=== PATIENT | male | born 1960 | race Caucasian/White ===

== ENCOUNTER 2023-09-24 14:45 | Outpatient (AMB) | payer MEDICAID, SELFPAY ==
--- NOTE | 2023-09-24 14:50 | HO.NEPHOV ---
HPI HPI Comments History of Present Illness Details Middle aged man with long standing HTN and DM with CKD Continues to smoke 1PPD PFSH Social History Alcohol intake: former Patient Tobacco Use Status: Former Tobacco user Tobacco use type: Cigarette Substance Use Type: Marijuana Vital Signs 09/24/23 14:51 Height 6 ft 2 in Weight 201 lb 8 oz BMI 25.9 BP 126/84 Blood Pressure Location Rt brachial Position Sitting Pulse 83 Pulse Source Pulse Oximeter Pulse Oximetry (%) 97 Oxygen Delivery Method Room Air Physical Exam Vital Signs: Last Vital Signs Pulse 83 09/24/23 14:51 BP 126/84 09/24/23 14:51 Pulse Ox 97 09/24/23 14:51 Oxygen Delivery Method Room Air 09/24/23 14:51 BMI result Body Mass Index 25.9 Const General: comfortable Nutritional Appearance: well nourished Orientation/consciousness: patient oriented x3 HEENT Head: No normal to inspection Mouth: moist mucous membranes Neck Neck: Yes supple and Yes no JVD Resp Auscultation: clear to auscultation bilaterally, no rales and rub present Cardio Jugular venous distension: no JVD Palpation: no palpable S3 and no palpable S4 Heart sounds: no rubs GI Palpation (GI): Soft to palpation and nontender Percussion: No Fluid wave present General: Yes no CVA tenderness Back/Spine/Pelvis Back: no CVA tenderness Skin General skin exam: no rashes or lesions noted Neuro General: patient oriented x3 Extrem General: Yes no pedal edema and No clubbing Assessment & Plan Assessment & Plan (1) HTN (hypertension): Code(s): I10 - Essential (primary) hypertension (2) Diabetes mellitus: Code(s): E11.9 - Type 2 diabetes mellitus without complications (3) CKD (chronic kidney disease) stage 3, GFR 30-59 ml/min: Code(s): N18.30 - Chronic kidney disease, stage 3 unspecified Plan 63-year-old man with a history of CKD in a setting of hypertension diabetes mellitus. Labs are not available at this time. Goal is to slow the portion disease. Continue to avoid nephrotoxic agents. Optimize blood sugar and maintain A1c less than 7%. Optimize blood pressure and maintain blood pressure less than 130/80. Basic workup ordered. All his questions were answered Orders: Orders Comprehensive Met. Panel 3 Months N18.30 - Chronic kidney disease, stage 3 unspecified Total Protein Urine Random 3 Months N18.30 - Chronic kidney disease, stage 3 unspecified Creatinine Urine 3 Months N18.30 - Chronic kidney disease, stage 3 unspecified Parathyroid Hormone Intact 3 Months N18.30 - Chronic kidney disease, stage 3 unspecified UA and rflx microscopic 3 Months N18.30 - Chronic kidney disease, stage 3 unspecified Coding Level of Care Code Est Pt Level 4 (49226) Diagnoses HTN (hypertension) I10 Diabetes mellitus E11.9 CKD (chronic kidney disease) stage 3, GFR 30-59 ml/min N18.30 Results Reviewed Nephrology Results: No Data to Display
[2023-09-24 14:51] VITALS: BP 126/84; PULSE 83; O2SAT 97; BMI 25.9
== END 2023-09-24 15:10 | disposition home or self-care (01) ==
PROVIDERS: Visit Provider Internal Medicine Hypertension Specialist
DX: I10 Essential (primary) hypertension (principal); E11.9 Type 2 diabetes mellitus without complications; N18.30 Chronic kidney disease, stage 3 unspecified
CPT/HCPCS: 99214

== ENCOUNTER → 2023-09-24 14:45 | Outpatient (BNVA) | payer MEDICAID, SELFPAY | PROVIDERS: Visit Provider Internal Medicine Hypertension Specialist | DX: I12.9 Hypertensive chronic kidney disease with stage 1 through stage 4 chronic kidney disease, or unspecified chronic kidney disease (principal); E11.22 Type 2 diabetes mellitus with diabetic chronic kidney disease; N18.30 Chronic kidney disease, stage 3 unspecified | CPT/HCPCS: 99212 ==

== ENCOUNTER 2024-01-28 14:17 | Outpatient (AMB) | payer MEDICAID, SELFPAY ==
[2024-01-28 14:20] VITALS: BP 110/80; PULSE 79; O2SAT 95; BMI 25.3
--- NOTE | 2024-01-28 14:20 | HO.NEPHOV ---
Vital Signs 01/28/24 14:20 Height 6 ft 2 in Weight 197 lb BMI 25.3 BP 110/80 Blood Pressure Location Rt brachial Position Sitting Pulse 79 Pulse Source Pulse Oximeter Pulse Oximetry (%) 95 Oxygen Delivery Method Room Air Intake Visit Reasons: CKD 4MO follow up/ # not on service Occupational Therapy Assist Required: No Accompanied by: Self / Same As Patient Allergies codeine Allergy (Verified 01/28/24 14:22) Gastrointestinal Upset Medication List - Last Reconciled 01/29/24 by Keith Bernardo MD aspirin 81 mg PO DAILY atorvastatin 20 mg PO DAILY carvedilol 25 mg PO BID dulaglutide (Trulicity) mg subcut QWEEK famotidine 40 mg PO BID glipizide ER 5 mg PO DAILY hydrochlorothiazide 25 mg PO DAILY hydroxyzine HCl 25 mg PO DAILY insulin glargine (Lantus Solostar U-100 Insulin) units subcut risperidone 1 mg PO BEDTIME tamsulosin 0.4 mg PO DAILY HPI Comments Details: Middle aged man with long standing HTN and DM with CKD He has quit smoking but continues to vape PENDING SALE TO [facility] Social History Alcohol intake: former Patient Tobacco Use Status: Former Tobacco user Tobacco use type: Cigarette Substance Use Type: Marijuana Physical Exam Vital Signs: Last Vital Signs Pulse 79 01/28/24 14:20 BP 110/80 01/28/24 14:20 Pulse Ox 95 01/28/24 14:20 Oxygen Delivery Method Room Air 01/28/24 14:20 BMI result Body Mass Index 25.3 Const General: comfortable Nutritional Appearance: well nourished Orientation/consciousness: patient oriented x3 HEENT Head: No normal to inspection Mouth: moist mucous membranes Neck Neck: Yes supple and Yes no JVD Resp Auscultation: clear to auscultation bilaterally, no rales and rub present Cardio Jugular venous distension: no JVD Palpation: no palpable S3 and no palpable S4 Heart sounds: no rubs GI Palpation (GI): Soft to palpation and nontender Percussion: No Fluid wave present General: Yes no CVA tenderness Back/Spine/Pelvis Back: no CVA tenderness Skin General skin exam: no rashes or lesions noted Neuro General: patient oriented x3 Extrem General: Yes no pedal edema and No clubbing Results Reviewed Results Reviewed: Labs from December 2023 was reviewed. BUN 26 Creatinine 2.0. GFR 37.3. Serum electrolytes normal. A1c 8.3. Over the past 4 months creatinine has been fluctuating between 2.0 and 2.4 mg/dL. Nephrology Results: No Data to Display Assessment & Plan Assessment & Plan (1) HTN (hypertension): Code(s): I10 - Essential (primary) hypertension Category: Medical (2) Diabetes mellitus: Code(s): E11.9 - Type 2 diabetes mellitus without complications Category: Medical (3) CKD (chronic kidney disease) stage 3, GFR 30-59 ml/min: Code(s): N18.30 - Chronic kidney disease, stage 3 unspecified Category: Medical Plan 63-year-old man with a history of CKD in a setting of hypertension diabetes mellitus. 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 Goal is to slow the progression of kidney disease. Continue to avoid nephrotoxic agents. Optimize blood sugar and maintain A1c less than 7%. Suggest adding SGLT 2 inhibitors. Optimize blood pressure and maintain blood pressure less than 130/80. Urine protein creatinine ratio ordered. He will benefit from RAAS inhibition. Coding Level of Care Code Est Pt Level 4 (72967) Diagnoses HTN (hypertension) I10 Diabetes mellitus E11.9 CKD (chronic kidney disease) stage 3, GFR 30-59 ml/min N18.30
== END 2024-01-28 14:59 | disposition home or self-care (01) ==
PROVIDERS: Visit Provider Internal Medicine Hypertension Specialist
DX: I10 Essential (primary) hypertension (principal); E11.9 Type 2 diabetes mellitus without complications; N18.30 Chronic kidney disease, stage 3 unspecified
CPT/HCPCS: 99214

== ENCOUNTER → 2024-01-28 14:17 | Outpatient (BNVA) | payer MEDICAID, SELFPAY | PROVIDERS: Visit Provider Internal Medicine Hypertension Specialist | DX: E11.22 Type 2 diabetes mellitus with diabetic chronic kidney disease (principal); I12.9 Hypertensive chronic kidney disease with stage 1 through stage 4 chronic kidney disease, or unspecified chronic kidney disease; N18.30 Chronic kidney disease, stage 3 unspecified | CPT/HCPCS: 99212 ==

== ENCOUNTER 2024-05-25 13:51 | Outpatient (AMB) | payer MEDICAID, SELFPAY ==
[2024-05-25 13:55] VITALS: BP 118/82; PULSE 75; O2SAT 96; BMI 25.3
--- NOTE | 2024-05-25 13:55 | HO.NEPHOV_ITS ---
Vital Signs 05/25/24 13:55 Height 6 ft 2 in Weight 197 lb BMI 25.3 BP 118/82 Blood Pressure Location Rt brachial Position Sitting Pulse 75 Pulse Source Pulse Oximeter Pulse Oximetry (%) 96 Oxygen Delivery Method Room Air Intake Visit Reasons: 4 mon follow up/ # not in service Bilingual Case Manager Required: No Accompanied by: Self / Same As Patient Allergies codeine Allergy (Verified 05/25/24 13:56) Gastrointestinal Upset Medication List - Last Reconciled 05/25/24 by Keith Bernardo MD aspirin 81 mg PO DAILY atorvastatin 20 mg PO DAILY carvedilol 25 mg PO BID dulaglutide (Trulicity) mg subcut QWEEK famotidine 40 mg PO BID glipizide ER 5 mg PO DAILY hydrochlorothiazide 25 mg PO DAILY hydroxyzine HCl 25 mg PO DAILY insulin glargine (Lantus Solostar U-100 Insulin) units subcut risperidone 1 mg PO BEDTIME tamsulosin 0.4 mg PO DAILY HPI Comments Details: Middle aged man with long standing HTN and DM with CKD He has quit smoking but continues to vape 05/25/24 Has been taking Motrin Also on HCTZ 25 mg c/o Pain in legs when he walks- relieved with rest PFSH Social History Alcohol intake: former Patient Tobacco Use Status: Former Tobacco user Tobacco use type: Cigarette Substance Use Type: Marijuana Physical Exam Vital Signs: Last Vital Signs Pulse 75 05/25/24 13:55 BP 118/82 05/25/24 13:55 Pulse Ox 96 05/25/24 13:55 Oxygen Delivery Method Room Air 05/25/24 13:55 BMI result Body Mass Index 25.3 Const General: comfortable; No acute distress Orientation/consciousness: patient oriented x3 Eyes General: appearance normal, both eyes and all related structures Visual Bhardwaj: normal visual bhardwaj by confrontation Neck Neck: Yes supple and Yes no JVD Resp Effort & Inspection: normal respiratory effort and respiratory effort not decreased Auscultation: rhonchi Cardio Palpation: no palpable S3 and no palpable S4 Heart sounds: no rubs GI Inspection: Yes normal to inspection Palpation (GI): Soft to palpation Percussion: Yes normal to percussion Auscultation: normal bowel sounds General: Yes no CVA tenderness Back/Spine/Pelvis Back: no CVA tenderness Skin General skin exam: no petechiae and no purpura Neuro General: patient oriented x3 and no focal motor deficits Extrem General: No clubbing and No edema Results Reviewed Nephrology Results: Renal US 05/29/24 Assessment & Plan Assessment & Plan (1) HTN (hypertension): Code(s): I10 - Essential (primary) hypertension Category: Medical (2) Diabetes mellitus: Code(s): E11.9 - Type 2 diabetes mellitus without complications Category: Medical (3) CKD (chronic kidney disease) stage 3, GFR 30-59 ml/min: Code(s): N18.30 - Chronic kidney disease, stage 3 unspecified Category: Medical Plan 63-year-old man with a history of CKD in a setting of hypertension diabetes mellitus. 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 Goal is to slow the progression of kidney disease. Continue to avoid nephrotoxic agents. Optimize blood sugar and maintain A1c less than 7%. Suggest adding SGLT 2 inhibitors. Optimize blood pressure and maintain blood pressure less than 130/80. Urine protein creatinine ratio ordered. He will benefit from RAAS inhibition. Superimposed JANICE due tp hypoperfusion from NSAIDS + HCTZ Still need to r/o obstruction Plan:DC HTCZ DC Motrin REcheck Renal panel in 3 weeks Orders: Orders US renal BI 05/29/24 N18.30 - Chronic kidney disease, stage 3 unspecified Basic Metabolic Panel 3 Weeks N18.30 - Chronic kidney disease, stage 3 unspecified Coding Level of Care Code Est Pt Level 4 (16611) Diagnoses HTN (hypertension) I10 Diabetes mellitus E11.9 CKD (chronic kidney disease) stage 3, GFR 30-59 ml/min N18.30
== END 2024-05-25 14:10 | disposition home or self-care (01) ==
PROVIDERS: Visit Provider Internal Medicine Hypertension Specialist
DX: I12.9 Hypertensive chronic kidney disease with stage 1 through stage 4 chronic kidney disease, or unspecified chronic kidney disease (principal); E11.22 Type 2 diabetes mellitus with diabetic chronic kidney disease; N18.32 Chronic kidney disease, stage 3b
CPT/HCPCS: 99214

== ENCOUNTER → 2024-05-25 13:51 | Outpatient (BNVA) | payer MEDICAID, SELFPAY | PROVIDERS: Visit Provider Internal Medicine Hypertension Specialist | DX: E11.22 Type 2 diabetes mellitus with diabetic chronic kidney disease (principal); I12.9 Hypertensive chronic kidney disease with stage 1 through stage 4 chronic kidney disease, or unspecified chronic kidney disease; N18.30 Chronic kidney disease, stage 3 unspecified | CPT/HCPCS: 99212 ==

== ENCOUNTER 2024-05-29 10:22 | Outpatient (REF) | payer MEDICAID, SELFPAY ==
--- NOTE | ~2024-05-29 | US_ITS ---
EXAMINATION: US RETROPERITONEAL LIMITED (RENAL ONLY) CLINICAL INFORMATION: Chronic kidney disease, stage 3 unspecified. COMPARISON: None available. TECHNIQUE: Real-time imaging of the kidneys. FINDINGS: RIGHT KIDNEY: 9.6 x 5.3 x 5.4 cm (SAG x AP x TRV). The kidney is normal in size, contour, and echogenicity. Renal cortical thickness is normal. No calculi or focal parenchymal lesions. No hydronephrosis. LEFT KIDNEY: 12.1 x 5.7 x 4.8 cm (SAG x AP x TRV). The kidney is normal in size, contour, and echogenicity. Renal cortical thickness is normal. No calculi or focal parenchymal lesions. No hydronephrosis. US/US renal BI IMPRESSION: Normal bilateral kidney ultrasound. Electronically signed by: Santos Lazo MD 07/10/2024 08:38 AM [facility] [place]
== END 2024-05-29 10:23 | disposition home or self-care (01) ==
LOC: HO.US 10:22
PROVIDERS: Visit Provider Internal Medicine Hypertension Specialist
DX: N18.30 Chronic kidney disease, stage 3 unspecified (principal)
CPT/HCPCS: 76775

== ENCOUNTER → 2024-05-29 10:25 | Outpatient (BNV) | payer MEDICAID, SELFPAY | PROVIDERS: Visit Provider Radiology Diagnostic Radiology | DX: N18.30 Chronic kidney disease, stage 3 unspecified (principal) | CPT/HCPCS: 76775 ==

== ENCOUNTER 2024-07-14 14:30 | Outpatient (AMB) | payer MEDICAID, SELFPAY ==
--- NOTE | 2024-07-14 14:33 | HO.NEPHOV_ITS ---
Vital Signs 07/14/24 14:34 Height 6 ft 2 in Weight 201 lb BMI 25.8 BP 114/82 Blood Pressure Location Rt brachial Position Sitting Pulse 66 Pulse Source Pulse Oximeter Pulse Oximetry (%) 97 Oxygen Delivery Method Room Air Intake Visit Reasons: CKD/ Conf Consulting Practice Director Required: No Accompanied by: Refuge Manager Allergies codeine Allergy (Verified 07/14/24 14:35) Gastrointestinal Upset Medication List - Last Reconciled 07/14/24 by Keith Bernardo MD aspirin 81 mg PO DAILY atorvastatin 20 mg PO DAILY carvedilol 25 mg PO BID dulaglutide (Trulicity) mg subcut famotidine 40 mg PO BID glipizide ER 5 mg PO DAILY hydroxyzine HCl 25 mg PO DAILY insulin glargine (Lantus Solostar U-100 Insulin) units subcut risperidone 1 mg PO BEDTIME tamsulosin 0.4 mg PO DAILY HPI Comments Details: Middle aged man with long standing HTN and DM with CKD and long stnading h/o smoking. h/o PVD He has quit smoking but continues to vape 05/25/24 Has been taking Motrin Also on HCTZ 25 mg c/o Pain in legs when he walks- relieved with rest 07/14/24 Events noted Seen by vascular surgery- has Carotid stenosis Has stopped vaping 3 weeks ago PFSH Social History Alcohol intake: former Patient Tobacco Use Status: Former Tobacco user Tobacco use type: Cigarette Substance Use Type: Marijuana Physical Exam Vital Signs: Last Vital Signs Pulse 66 07/14/24 14:34 BP 114/82 07/14/24 14:34 Pulse Ox 97 07/14/24 14:34 Oxygen Delivery Method Room Air 07/14/24 14:34 BMI result Body Mass Index 25.8 Const General: comfortable; No acute distress Orientation/consciousness: patient oriented x3 Eyes General: appearance normal, both eyes and all related structures Visual Bhardwaj: normal visual bhardwaj by confrontation Neck Neck: Yes supple and Yes no JVD Resp Effort & Inspection: normal respiratory effort and respiratory effort not decreased Auscultation: rhonchi Cardio Palpation: no palpable S3 and no palpable S4 Heart sounds: no rubs GI Inspection: Yes normal to inspection Palpation (GI): Soft to palpation Percussion: Yes normal to percussion Auscultation: normal bowel sounds General: Yes no CVA tenderness Back/Spine/Pelvis Back: no CVA tenderness Skin General skin exam: no petechiae and no purpura Neuro General: patient oriented x3 and no focal motor deficits Extrem General: No clubbing and No edema Results Reviewed Results Reviewed: May 2024 Renal USG RIGHT KIDNEY: 9.6 x 5.3 x 5.4 cm (SAG x AP x TRV). The kidney is normal in size, contour, and echogenicity. Renal cortical thickness is normal. No calculi or focal parenchymal lesions. No hydronephrosis. LEFT KIDNEY: 12.1 x 5.7 x 4.8 cm (SAG x AP x TRV). The kidney is normal in size, contour, and echogenicity. Renal cortical thickness is normal. No calculi or focal parenchymal lesions. No hydronephrosis. US/US renal BI IMPRESSION: Normal bilateral kidney ultrasound. Nephrology Results: Renal US 05/29/24 Assessment & Plan Assessment & Plan (1) HTN (hypertension): Code(s): I10 - Essential (primary) hypertension Category: Medical (2) Diabetes mellitus: Code(s): E11.9 - Type 2 diabetes mellitus without complications Category: Medical (3) CKD (chronic kidney disease) stage 3, GFR 30-59 ml/min: Code(s): N18.30 - Chronic kidney disease, stage 3 unspecified Category: Medical Plan 63-year-old man with a history of CKD in a setting of hypertension diabetes mellitus. 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 BP is well controleld Goal is to slow the progression of kidney disease. Continue to avoid nephrotoxic agents. Optimize blood sugar and maintain A1c less than 7%. Suggest adding SGLT 2 inhibitors. Optimize blood pressure and maintain blood pressure less than 130/80. Urine protein creatinine ratio ordered but not done. Reordered He will benefit from RAAS inhibition/SGLT-2 inhibition No evidence of obstruction based on ultrasound Right kidney is relatively smaller than left. Cannot rule out underlying KANDY given the history of smoking . However, BP is well controlled At risk for contrast nephropathy. Would recommend hydration prior to CTA Orders: Orders Total Protein Urine Random Today N18.30 - Chronic kidney disease, stage 3 unspecified UA and rflx microscopic Today N18.30 - Chronic kidney disease, stage 3 unspecified Creatinine Today N18.30 - Chronic kidney disease, stage 3 unspecified Basic Metabolic Panel Today N18.30 - Chronic kidney disease, stage 3 unspecified Coding Level of Care Code Est Pt Level 4 (95043) Diagnoses HTN (hypertension) I10 Diabetes mellitus E11.9 CKD (chronic kidney disease) stage 3, GFR 30-59 ml/min N18.30
[2024-07-14 14:34] VITALS: BP 114/82; PULSE 66; O2SAT 97; BMI 25.8
== END 2024-07-14 14:52 | disposition home or self-care (01) ==
PROVIDERS: Visit Provider Internal Medicine Hypertension Specialist
DX: I12.9 Hypertensive chronic kidney disease with stage 1 through stage 4 chronic kidney disease, or unspecified chronic kidney disease (principal); E11.22 Type 2 diabetes mellitus with diabetic chronic kidney disease; N18.30 Chronic kidney disease, stage 3 unspecified
CPT/HCPCS: 99214

== ENCOUNTER → 2024-07-14 14:30 | Outpatient (BNVA) | payer MEDICAID, SELFPAY | PROVIDERS: Visit Provider Internal Medicine Hypertension Specialist | DX: I12.9 Hypertensive chronic kidney disease with stage 1 through stage 4 chronic kidney disease, or unspecified chronic kidney disease (principal); E11.22 Type 2 diabetes mellitus with diabetic chronic kidney disease; E11.51 Type 2 diabetes mellitus with diabetic peripheral angiopathy without gangrene; N18.30 Chronic kidney disease, stage 3 unspecified; Z87.891 Personal history of nicotine dependence | CPT/HCPCS: 99212 ==

== ENCOUNTER 2024-10-06 10:00 | Outpatient (AMB) | payer MEDICAID, SELFPAY ==
[2024-10-06 10:04] VITALS: BP 120/98; PULSE 82; O2SAT 97; BMI 25.2
--- NOTE | 2024-10-06 10:04 | HO.NEPHOV ---
Vital Signs 10/06/24 10:04 10/06/24 10:17 Height 6 ft 2 in Weight 196 lb BMI 25.2 BP 120/98 H 120/70 Blood Pressure Location Rt brachial Rt brachial Position Sitting Sitting Pulse 82 Pulse Source Pulse Oximeter Pulse Oximetry (%) 97 Oxygen Delivery Method Room Air Intake Visit Reasons: CKD/ Conf Paper Gluing Operator Required: No Accompanied by: Self / Same As Patient Allergies codeine Allergy (Verified 10/06/24 10:06) Gastrointestinal Upset Medication List - Last Reconciled 10/06/24 by Keith Bernardo MD aspirin 81 mg PO DAILY atorvastatin 20 mg PO DAILY carvedilol 25 mg PO BID clopidogrel 75 mg PO DAILY dulaglutide (Trulicity) mg subcut famotidine 40 mg PO BID glipizide ER 5 mg PO DAILY hydroxyzine HCl 25 mg PO DAILY insulin glargine (Lantus Solostar U-100 Insulin) units subcut risperidone 1 mg PO BEDTIME tamsulosin 0.4 mg PO DAILY HPI Comments Details: Middle aged man with long standing HTN and DM with CKD and long stnading h/o smoking. h/o PVD He has quit smoking but continues to vape 05/25/24 Has been taking Motrin Also on HCTZ 25 mg c/o Pain in legs when he walks- relieved with rest 07/14/24 Events noted Seen by vascular surgery- has Carotid stenosis Has stopped vaping 3 weeks ago 10/06/24- Underwent L CEA Doing well Still smoking PFSH Social History Alcohol intake: former Patient Tobacco Use Status: Former Tobacco user Tobacco use type: Cigarette Substance Use Type: Marijuana Physical Exam Vital Signs: Last Vital Signs Pulse 82 10/06/24 10:04 BP 120/98 H 10/06/24 10:04 Pulse Ox 97 10/06/24 10:04 Oxygen Delivery Method Room Air 10/06/24 10:04 BMI result Body Mass Index 25.2 Comfortable Neck supple no JVD. Lungs entry equal no rales. Heart S1-S2 heard no gallop or rub. Abdomen soft nontender. Neuro alert awake oriented. No asterixis. Left UE weakness Extremities no edema. Results Reviewed Results Reviewed: May 2024 Renal USG RIGHT KIDNEY: 9.6 x 5.3 x 5.4 cm (SAG x AP x TRV). The kidney is normal in size, contour, and echogenicity. Renal cortical thickness is normal. No calculi or focal parenchymal lesions. No hydronephrosis. LEFT KIDNEY: 12.1 x 5.7 x 4.8 cm (SAG x AP x TRV). The kidney is normal in size, contour, and echogenicity. Renal cortical thickness is normal. No calculi or focal parenchymal lesions. No hydronephrosis. US/US renal BI IMPRESSION: Normal bilateral kidney ultrasound. Nephrology Results: Renal US 05/29/24 Assessment & Plan Assessment & Plan (1) HTN (hypertension): Code(s): I10 - Essential (primary) hypertension Category: Medical (2) Diabetes mellitus: Code(s): E11.9 - Type 2 diabetes mellitus without complications Category: Medical (3) CKD (chronic kidney disease) stage 3, GFR 30-59 ml/min: Code(s): N18.30 - Chronic kidney disease, stage 3 unspecified Category: Medical Plan 63-year-old man with a history of CKD in a setting of hypertension diabetes mellitus. 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 BP is well controleld Goal is to slow the progression of kidney disease. Continue to avoid nephrotoxic agents. Optimize blood sugar and maintain A1c less than 7%. Suggest adding SGLT 2 inhibitors. Optimize blood pressure and maintain blood pressure less than 130/80. Urine protein creatinine ratio ordered but not done. Reordered He will benefit from RAAS inhibition/SGLT-2 inhibition No evidence of obstruction based on ultrasound Right kidney is relatively smaller than left. Cannot rule out underlying KANDY given the history of smoking . However, BP is well controlled At risk for contrast nephropathy. Would recommend hydration prior to CTA Orders: Orders Comprehensive Met. Panel Today N18.30 - Chronic kidney disease, stage 3 unspecified Complete Blood Count Auto Diff Today N18.30 - Chronic kidney disease, stage 3 unspecified Coding Level of Care Code Est Pt Level 4 (71687) Diagnoses HTN (hypertension) I10 Diabetes mellitus E11.9 CKD (chronic kidney disease) stage 3, GFR 30-59 ml/min N18.30
[2024-10-06 10:17] VITALS: BP 120/70
== END 2024-10-06 10:20 | disposition home or self-care (01) ==
PROVIDERS: Visit Provider Internal Medicine Hypertension Specialist
DX: I10 Essential (primary) hypertension (principal); E11.9 Type 2 diabetes mellitus without complications; N18.30 Chronic kidney disease, stage 3 unspecified
CPT/HCPCS: 99214

== ENCOUNTER → 2024-10-06 10:00 | Outpatient (BNVA) | payer MEDICAID, SELFPAY | PROVIDERS: Visit Provider Internal Medicine Hypertension Specialist | DX: E11.22 Type 2 diabetes mellitus with diabetic chronic kidney disease (principal); I12.9 Hypertensive chronic kidney disease with stage 1 through stage 4 chronic kidney disease, or unspecified chronic kidney disease; N18.30 Chronic kidney disease, stage 3 unspecified | CPT/HCPCS: 99212 ==

== ENCOUNTER 2024-10-06 10:35 | Outpatient (REF) | payer MEDICAID, SELFPAY ==
[2024-10-06 11:54] LABS: MANUAL DIFF FLAG NO
[2024-10-06 12:04] LABS: Basophils Absolute Auto 0.1 X10*3/uL (0.0-0.2); Basophils Percent Auto 0.6 % (0-2); Eosinophils Absolute Auto 0.2 X10*3/uL (0.0-0.4); Eosinophils Percent Auto 1.4 % (0-4); Hematocrit 45.5 % (42.0-52.0); Imm Gran Abs Auto 0.06 X10*3/uL (0.00-0.03); Imm Gran Pct Auto 0.5 % (0.0-0.4); Lymphocytes Absolute Auto 1.8 X10*3/uL (1.2-4.9); Lymphocytes Percent Auto 14.4 % (20-40); Mean Corpuscular Hemoglobin 29.5 pg (27.0-33.0); Mean Corpuscular Volume 89.4 fL (80.0-98.0); Mean Platelet Volume 10.1 fL (9.4-12.4); Monocytes Absolute Auto 0.8 X10*3/uL (0.1-1.2); Monocytes Percent Auto 6.4 % (2-11); Neutrophils Absolute Auto 9.5 x10*3/uL (2.0-8.3); Neutrophils Percent Auto 76.7 % (45-73); Platelet Count 258 X10*3/uL (160-400); Red Blood Count 5.09 X10*6/uL (4.60-5.80); Red Cell Distribution Width 14.2 % (11.0-16.0); White Blood Count 12.3 X10*3/uL (4.8-10.8)
[2024-10-06 12:32] LABS: Alanine Aminotransferase 23 U/L (0-40); Alkaline Phosphatase 107 U/L (39-117); Anion Gap 16 (12-20); Aspartate Amino Transferase 23 U/L (5-37); Bilirubin Total 0.3 mg/dL (0.0-1.0); Blood Urea Nitrogen 25 mg/dL (9-16); Calcium 9.7 mg/dL (8.4-10.2); Carbon Dioxide 24 mmol/L (22-29); Chloride 105 mmol/L (96-108); Estimated Glomerular Filt Rate 34; Glucose Random 161 mg/dL (60-115); Potassium 4.6 mmol/L (3.3-5.1); Sodium 140 mmol/L (135-145); Total Protein 7.4 g/dL (6.5-8.0)
== END 2024-10-06 10:36 | disposition home or self-care (01) ==
LOC: HO.10HDL 10:35
PROVIDERS: Visit Provider Internal Medicine Hypertension Specialist
DX: N18.30 Chronic kidney disease, stage 3 unspecified (principal)
CPT/HCPCS: 36415; 80053; 85025

== ENCOUNTER 2025-02-04 11:06 | Outpatient (AMB) | payer MEDICAID, SELFPAY ==
[2025-02-04 11:19] VITALS: BP 134/88; PULSE 71; O2SAT 96; BMI 27.2
--- NOTE | 2025-02-04 11:19 | HO.NEPHOV_ITS ---
Vital Signs 02/04/25 11:19 Height 6 ft 2 in Weight 212 lb BMI 27.2 BP 134/88 Blood Pressure Location Rt brachial Position Sitting Pulse 71 Pulse Source Pulse Oximeter Pulse Oximetry (%) 96 Oxygen Delivery Method Room Air Intake Visit Reasons: CKD/ Conf Vice [employer] Required: No Accompanied by: Friend Allergies codeine Allergy (Verified 02/04/25 11:22) Gastrointestinal Upset Medication List - Last Reconciled 02/04/25 by Keith Bernardo MD aspirin 81 mg PO DAILY atorvastatin 20 mg PO DAILY carvedilol 25 mg PO BID clopidogrel 75 mg PO DAILY dulaglutide (Trulicity) mg subcut famotidine 40 mg PO BID glipizide ER 5 mg PO DAILY hydroxyzine HCl 25 mg PO DAILY insulin glargine (Lantus Solostar U-100 Insulin) units subcut risperidone 1 mg PO BEDTIME tamsulosin 0.4 mg PO DAILY HPI Comments Details: Middle aged man with long standing HTN and DM with CKD and long stnading h/o smoking. h/o PVD He has quit smoking but continues to vape 05/25/24 ;Has been taking Motrin ;Also on HCTZ 25 mg ;c/o Pain in legs when he walks- relieved with rest 07/14/24 ;Events noted ;Seen by vascular surgery- has Carotid stenosis; Has stopped vaping 3 weeks ago 10/06/24- Underwent L CEA ;Doing well ;Still smoking 02/04/25 64-year-old male presenting for follow-up regarding chronic kidney disease and hypertension management. He has chronic kidney disease alongside essential hypertension, with blood pressure maintained at a goal of 134/88 mmHg on current antihypertensive therapy. The patient also has type 2 diabetes mellitus, managed with a regimen including Trulicity, glipizide, and Lantus. His last blood glucose reading was 170 mg/dL with an HbA1c of approximately 7.5%. The patient's vascular history includes peripheral vascular disease and a history of carotid artery surgery performed in October. An ultrasound of the carotid arteries has been suggested but not scheduled. The patient reports attempts to reduce smoking and follow dietary recommendations related to salt intake given the impact on blood pressure and renal function. No significant changes or new symptoms were described during the visit. [facility] Social History Alcohol intake: former Patient Tobacco Use Status: Former Tobacco user Tobacco use type: Cigarette Substance Use Type: Marijuana Physical Exam Vital Signs: Last Vital Signs Pulse 71 02/04/25 11:19 BP 134/88 02/04/25 11:19 Pulse Ox 96 02/04/25 11:19 Oxygen Delivery Method Room Air 02/04/25 11:19 BMI result Body Mass Index 27.2 Comfortable Neck supple no JVD. Lungs entry equal no rales. Heart S1-S2 heard no gallop or rub. Abdomen soft nontender. Neuro alert awake oriented. No asterixis. Left UE weakness Extremities no edema. Results Reviewed Results Reviewed: Cr 2.1 Nephrology Results: Hgb 15.0 g/dl (14.0-18.0) 10/06/24 WBC 12.3 X10*3/uL (4.8-10.8) H 10/06/24 Plt Count 258 X10*3/uL (160-400) 10/06/24 Sodium 140 mmol/L (135-145) 10/06/24 Potassium 4.6 mmol/L (3.3-5.1) 10/06/24 Chloride 105 mmol/L (96-108) 10/06/24 Carbon Dioxide 24 mmol/L (22-29) 10/06/24 BUN 25 mg/dL (9-16) H 10/06/24 Creatinine 2.01 mg/dL (0.5-1.4) H 10/06/24 Calcium 9.7 mg/dL (8.4-10.2) 10/06/24 Renal US 05/29/24 Assessment & Plan Assessment & Plan (1) HTN (hypertension): Code(s): I10 - Essential (primary) hypertension Category: Medical (2) Diabetes mellitus: Code(s): E11.9 - Type 2 diabetes mellitus without complications Category: Medical (3) CKD (chronic kidney disease) stage 3, GFR 30-59 ml/min: Code(s): N18.30 - Chronic kidney disease, stage 3 unspecified Category: Medical Plan 64-year-old man with a history of CKD in a setting of hypertension diabetes mellitus. 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 BP is well controleld Goal is to slow the progression of kidney disease. Continue to avoid nephrotoxic agents. Optimize blood sugar and maintain A1c less than 7%. Suggest adding SGLT 2 inhibitors. Optimize blood pressure and maintain blood pressure less than 130/80. Urine protein creatinine ratio ordered but not done. Reordered He will benefit from RAAS inhibition/SGLT-2 inhibition No evidence of obstruction based on ultrasound Right kidney is relatively smaller than left. Cannot rule out underlying KANDY given the history of smoking . However, BP is acceptable Will track down lab results from [facility] Orders: Orders Complete Blood Count Auto Diff 3 Months N18.30 - Chronic kidney disease, stage 3 unspecified Parathyroid Hormone Intact 3 Months N18.30 - Chronic kidney disease, stage 3 unspecified UA and rflx microscopic 3 Months N18.30 - Chronic kidney disease, stage 3 unspecified Total Protein Urine Random 3 Months N18.30 - Chronic kidney disease, stage 3 unspecified Basic Metabolic Panel 3 Months N18.30 - Chronic kidney disease, stage 3 unspecified Creatinine Urine 3 Months N18.30 - Chronic kidney disease, stage 3 unspecified Patient Instructions: - Continue taking current medications as prescribed. - Check blood pressure regularly and maintain it within the target range. - Monitor your blood glucose levels and inform of any significant changes. - Reduce salt intake in your diet. - Attempt to quit smoking to improve vascular and renal health. - Schedule and attend ultrasound for carotid artery evaluation. - If you experience any new symptoms, seek medical care promptly. - Follow up with any specialists as advised for hernia consultation. - Attend blood work and next scheduled appointment in May. Coding Level of Care Code Est Pt Level 4 (14319) Diagnoses HTN (hypertension) I10 Diabetes mellitus E11.9 CKD (chronic kidney disease) stage 3, GFR 30-59 ml/min N18.30
== END 2025-02-04 11:32 | disposition home or self-care (01) ==
LOC: HO.HKA 11:07
PROVIDERS: Visit Provider Internal Medicine Hypertension Specialist
DX: I10 Essential (primary) hypertension (principal); E11.9 Type 2 diabetes mellitus without complications; N18.30 Chronic kidney disease, stage 3 unspecified
CPT/HCPCS: 99214

== ENCOUNTER → 2025-02-04 11:06 | Outpatient (BNVA) | payer MEDICAID, SELFPAY | PROVIDERS: Visit Provider Internal Medicine Hypertension Specialist | DX: E11.22 Type 2 diabetes mellitus with diabetic chronic kidney disease (principal); I12.9 Hypertensive chronic kidney disease with stage 1 through stage 4 chronic kidney disease, or unspecified chronic kidney disease; N18.32 Chronic kidney disease, stage 3b | CPT/HCPCS: 99212 ==

== ENCOUNTER 2025-05-11 10:37 | Outpatient (AMB) | payer MEDICAID, SELFPAY ==
--- NOTE | 2025-05-11 10:39 | HO.NEPHOV ---
Vital Signs 05/11/25 10:40 Height 6 ft 2 in Weight 212 lb BMI 27.2 BP 140/82 H Blood Pressure Location Lt brachial Position Sitting Pulse 76 Pulse Source Pulse Oximeter Pulse Oximetry (%) 95 Oxygen Delivery Method Room Air Intake Visit Reasons: FU CONF Director Of Clinical Services Required: No Accompanied by: Self / Same As Patient Allergies codeine Allergy (Verified 05/11/25 10:41) Gastrointestinal Upset Medication List - Last Reconciled 05/11/25 by Keith Bernardo MD aspirin 81 mg PO DAILY atorvastatin 20 mg PO DAILY carvedilol 25 mg PO BID clopidogrel 75 mg PO DAILY dulaglutide (Trulicity) mg subcut famotidine 40 mg PO BID glipizide ER 5 mg PO DAILY hydroxyzine HCl 25 mg PO DAILY insulin glargine (Lantus Solostar U-100 Insulin) units subcut risperidone 1 mg PO BEDTIME tamsulosin 0.4 mg PO DAILY HPI Comments Details: Middle aged man with long standing HTN and DM with CKD and long stnading h/o smoking. h/o PVD He has quit smoking but continues to vape 05/25/24 ;Has been taking Motrin ;Also on HCTZ 25 mg ;c/o Pain in legs when he walks- relieved with rest 07/14/24 ;Events noted ;Seen by vascular surgery- has Carotid stenosis; Has stopped vaping 3 weeks ago 10/06/24- Underwent L CEA ;Doing well ;Still smoking 02/04/25 64-year-old male presenting for follow-up regarding chronic kidney disease and hypertension management. He has chronic kidney disease alongside essential hypertension, with blood pressure maintained at a goal of 134/88 mmHg on current antihypertensive therapy. The patient also has type 2 diabetes mellitus, managed with a regimen including Trulicity, glipizide, and Lantus. His last blood glucose reading was 170 mg/dL with an HbA1c of approximately 7.5%. The patient's vascular history includes peripheral vascular disease and a history of carotid artery surgery performed in October. An ultrasound of the carotid arteries has been suggested but not scheduled. The patient reports attempts to reduce smoking and follow dietary recommendations related to salt intake given the impact on blood pressure and renal function. No significant changes or new symptoms were described during the visit. 05/11/25 The patient is a 64-year-old male presenting for management of chronic disease and hypertension. Blood pressure is well-controlled with carvedilol 25 mg twice daily, with no recent medication changes. Blood sugar is monitored regularly, but the last A1c value is unknown. Chronic kidney disease is stable, though kidney function is decreased. A urine sample is required to check protein levels for medication adjustment. Medications: - Carvedilol 25 mg twice daily for hypertension PFSH Social History Alcohol intake: former Patient Tobacco Use Status: Former Tobacco user Tobacco use type: Cigarette Substance Use Type: Marijuana Physical Exam Vital Signs: Last Vital Signs Pulse 76 05/11/25 10:40 BP 140/82 H 05/11/25 10:40 Pulse Ox 95 05/11/25 10:40 Oxygen Delivery Method Room Air 05/11/25 10:40 BMI result Body Mass Index 27.2 Comfortable Neck supple no JVD. Lungs entry equal no rales. Heart S1-S2 heard no gallop or rub. Abdomen soft nontender. Neuro alert awake oriented. No asterixis. Left UE weakness Extremities no edema. Results Reviewed Results Reviewed: 04/26/25 BUN /Cr 30/2.3 Nephrology Results: Hgb, (14.0-18.0) 15.0 g/dl 10/06/24 WBC, (4.8-10.8) 12.3 X10*3/uL H 10/06/24 Plt Count, (160-400) 258 X10*3/uL 10/06/24 Sodium, (135-145) 140 mmol/L 10/06/24 Potassium, (3.3-5.1) 4.6 mmol/L 10/06/24 Chloride, (96-108) 105 mmol/L 10/06/24 Carbon Dioxide, (22-29) 24 mmol/L 10/06/24 BUN, (9-16) 25 mg/dL H 10/06/24 Creatinine, (0.5-1.4) 2.01 mg/dL H 10/06/24 Calcium, (8.4-10.2) 9.7 mg/dL 10/06/24 Renal US 05/29/24 Assessment & Plan Assessment & Plan (1) HTN (hypertension): Code(s): I10 - Essential (primary) hypertension Category: Medical (2) Diabetes mellitus: Code(s): E11.9 - Type 2 diabetes mellitus without complications Category: Medical (3) CKD (chronic kidney disease) stage 3, GFR 30-59 ml/min: Code(s): N18.30 - Chronic kidney disease, stage 3 unspecified Category: Medical Plan 64-year-old man with a history of CKD in a setting of hypertension diabetes mellitus. 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 BP is well controleld Goal is to slow the progression of kidney disease. Continue to avoid nephrotoxic agents. Optimize blood sugar and maintain A1c less than 7%. Suggest adding SGLT 2 inhibitors. Optimize blood pressure and maintain blood pressure less than 130/80. Urine protein creatinine ratio ordered but not done. Reordered He will benefit from RAAS inhibition/SGLT-2 inhibition No evidence of obstruction based on ultrasound Right kidney is relatively smaller than left. Cannot rule out underlying KANDY given the history of smoking . However, BP is acceptable Check urine for protein Will add ACEi or ARB for renal protection and to optimize BP based on urine studies Orders: Orders Creatinine Urine Today N18.30 - Chronic kidney disease, stage 3 unspecified Total Protein Urine Random Today N18.30 - Chronic kidney disease, stage 3 unspecified UA and rflx microscopic Today N18.30 - Chronic kidney disease, stage 3 unspecified Total Protein Urine Random 3 Months N18.30 - Chronic kidney disease, stage 3 unspecified Basic Metabolic Panel Today N18.30 - Chronic kidney disease, stage 3 unspecified Complete Blood Count no Diff Today N18.30 - Chronic kidney disease, stage 3 unspecified UA and rflx microscopic 3 Months N18.30 - Chronic kidney disease, stage 3 unspecified Creatinine Urine 3 Months N18.30 - Chronic kidney disease, stage 3 unspecified Coding Level of Care Code Est Pt Level 4 (65737) Diagnoses HTN (hypertension) I10 Diabetes mellitus E11.9 CKD (chronic kidney disease) stage 3, GFR 30-59 ml/min N18.30
[2025-05-11 10:40] VITALS: BP 140/82; PULSE 76; O2SAT 95; BMI 27.2
--- OUTSIDE RECORDS SUMMARY | 2025-05-11 12:32 | XMS_ITS | Encounter Summary ---
Author Organization [facility] Address [address] [place] [address] Phone Care Team Providers Care Consultants Intern Name Role Phone Siddharth Ashley MD Primary Care Provider [phone] Encounter Details Date Type Department Care Team (Late st Contact Info) Description 03/01/2025 Prep for Surgery [facility] [address] [place] [address] Susanna Burns MD [address] 2nd [place] [address] [email or web address] Social History Tobacco Use Types Packs/Day Years Used Date Smoking Tobacco: Every Day Cigarettes 1 15 Smokeless Tobacco: Never Comments:Pt is in process of quitting. Alcohol Use Standard Drinks/Week Comments No 0 (1 standard drink = 0.6 oz pur e alcohol) Education Answer Date Recorded Are you interested in more education? Not on byron e 12/28/2022 Are you concerned about learning? Not on file 12/28/2022 No 12/28/2022 No 12/28/2022 Digital Access Answer Date Recorded No 01/28/2023 No 01/28/2023 Reliable internet access at home? Not on file 01/28/2023 Device with a working camera? Not on file Sex and Gender Information Value Date Recorded Sex Assigned at Male 03/14/2018 12:29 PM EDT Legal Sex Male 9:45 PM EDT Gender Identity Male 03/14/2018 12:29 PM EDT Sexual Orientation Straight 09/29/2018 5: 18 PM EST documented as of this encounter Plan of Treatment Upcoming Encounters Date Type Department Care Team (Latest Contact Info) Description 05/14/2025 8:30 AM EDT Pre-Admission Testing Pre Procedure Evaluation [address] [place] [id number] Susanna Burns MD [address] [place] [phone] [email or web address] 05/17/2025 Procedure Pass OR Admitting Dept - Virtual Department [address] [place] [id number] 05/17/2025 8:56 AM EDT Hospital Encounter OR Admitting Dept - Virtual Department [address] [place] [id number] Susanna Burns MD [address] [place] [phone] [email or web address] 05/17/2025 8:56 AM EDT - 05/17/2025 11:06 AM EDT Surgery OR Admitting Dept - Virtual Department [address] [place] [phone] Susanna Burns MD [address] [place] [phone] [email or web address] REPAIR HERNIA INGUINAL Scheduled Procedures Name Priority Associated Diagnoses Date/Ti wa REPAIR HERNIA INGUINAL Unilateral inguinal hernia without obstruction or gangrene, recurrence not specified 05/17/2025 8:56 AM EDT documented as of this encounter Visit Diagnoses Not on filedocumented in this encounter Care Teams Consultants Intern Relationship Specialty Start Date End Date Siddharth Ashley MD [address] [place] [address] [place] [phone] [email or web address] PCP - General Internal Medicine 10/28/24 documented as of this encounter Additional Source Comments The information contained in this document represents components of the legal health record. It is not the complete legal health record.[facility]
--- OUTSIDE RECORDS SUMMARY | 2025-05-11 12:32 | XMS_ITS | Clinical Summary ---
Author Organization [facility] Address [address] [place] [address] Phone Care Team Providers Care Emergency Detail Driver Name Role Phone Siddharth Ashley MD Primary Care Provider [phone]- [phone] Allergies Active Allergy Reactions Criticality Noted Date Comments Codeine Nausea and/or Vomiting,Unknown 04/14 Medications * This document contains information received from the source organization and may not represent a complete record from that organization. aspirin 81 MG EC tablet Take 81 mg by mouth daily. Active atorvastatin calcium (ATORVASTATIN ORAL) Take 20 mg by mouth daily. Active carvedilol (COREG) 25 MG tablet Take 25 mg by mouth 2 (two) times a day with meals. Active hydroCHLOROthiazide (HYDRODIURIL) 25 MG tablet Take 25 mg by mouth daily. Active famotidine (PEPCID) 40 MG tablet Take 40 mg by mouth 2 (two) times a day. Active hydrOXYzine (ATARAX) 25 MG tablet Take 25 mg by mouth every evening. Active glipiZIDE (GLUCOTROL XL) 5 MG 24 hr tablet Take 5 mg by mouth daily. Active dulaglutide (TRULICITY) 1.5 mg/0.5 mL subcutaneous injection Inject 1.5 mg under the skin every 7 days. Active risperiDONE (RISPERDAL M-TABS) 1 MG disintegrating tablet Take 1 tablet (1 mg total) by mouth nightly at bedtime. 30 tablet 2 Active TRULICITY 3 mg/0.5 mL subcutaneous injection 4 Active BASAGLAR KWIKPEN U-100 INSULIN 100 unit/mL (3 mL) InPn injection pen 4 Active tamsulosin (FLOMAX) 0.4 mg Cap 4 Active QUEtiapine (SEROQUEL) 25 MG tablet Take 25 mg by mouth daily. Active oxyCODONE 5 MG immediate release tablet 4 Active metFORMIN (GLUCOPHAGE) 850 MG tablet 850 mg. 0 Active lovastatin (MEVACOR) 40 MG tablet Active clopidogrel (PLAVIX) 75 mg tablet Take 75 mg by mouth. 4 Active glyBURIDE (DIABETA) 5 MG tablet 5 mg. 0 Active FREESTYLE SHERRI 2 SENSOR kit 5 Active cefadroxil (DURICEF) 500 MG capsuleIndications: Toe infection Take 1 capsule (500 mg total) by mouth 2 (two) times a day for 7 days. 14 capsule 5 04/14/20 25 Active Problems Problem Noted Date Diagnosed Date Abnormal EKG 02/07/2022 Assessment & Plan (02/09/2022 4:06 PM EDT): The patient has nonspecific ST changes laterally. They are more pronounced than prior but are present on an EKG from December 2021, and back 2017. They are present again 02/07 without the presence of acute chest pain. 2 troponins are mildly elevated without delta, and these are much more likely to be due to underlying renal disease. Given the fact that the patient is a diabetic, and has some evidence of peripheral vascular disease by exam, ordered an echocardiogram to rule out significant structural abnormalities or wall motion abnormalities. Fortunately, this only shows LVH, likely due to longstanding hypertension. After discharge the patient should be referred to [facility] for evaluation with stress testing and peripheral studies. This can all be done as an outpatient. Primary hypertension 02/06/2022 Assessment & Plan (02/09/2022 4:06 PM EDT): -We will continue his home medications of Coreg, terazosin and hydrochlorothiazide. This is working nicely. BMP is stable. tells me he is following with a ceiling insulation blower at [place]. Type 2 diabetes mellitus wit hout complication, with long-term current use of insulin 02/06/2022 Assessment & Plan (02/09/2022 4:07 PM EDT): It appears that the patient had been on metformin in the past however this was discontinued secondary to a rise in his creatinine. Most recently his creatinine was as high as 2.6 and on 02/02 it was noted at 2.1 back in 2018 it was noted at 1.1. His metformin has been discontinued and he was started on glipizide ER 5 mg daily with a recent increase in his Trulicity to 1.5 mg every week this was changed on January 26. The dose can be increased to 3mg after a month on the 1.5mg. Blood sugars noted to be high upon admission into the 200s. Now that someone brought in his Trulicity(Saturday dosing), stopping the lantus. Keep the sliding scale in place for now. He seems very comfortable, and even insistent about the Trulicity. The once a week dosing will make it easier for him. Hypercholesterolemia 02/06/2022 Assessment & Plan (02/06/2022 12:51 PM EDT): Continue lipitor Altered mental status 02/06/2022 Assessment & Plan (02/09/2022 4:04 PM EDT): Likely secondary to underlying psychiatric disease. None of his recent medication changes should have had an effect on this. Today he is awake alert and oriented. He understands that we have ordered an echocardiogram and is interested in getting it done. I told him he is likely going to need to see the scheduler as an outpatient. Psychosis, paranoid 02/05/2022 Assessment & Plan (02/06/2022 11:28 AM EDT): Treatment as per psychiatry team Encounters Date Type Department Care Team Description 04/07/2025 1:30 PM EDT Office Visit [facility] at [address] [address] Eugene Stallworth CNP Toe infection (Primary Dx); Laceration of left great toe without foreign body present or damage to nail, initial encounter 03/23/2025 Telephone [facility] [address] [place] [address] Susanna Burns MD surgery questions 03/01/2025 Prep for Surgery [facility] [address] [place] [address] Susanna Burns MD 02/23/2025 10:00 AM EDT Office Visit [facility] [address] [place] [address] Susanna Burns MD Incarcerated inguinal hernia, unilateral (Primary Dx) from Last 3 Months Immunizations Immunization Administration Dates Next Due COVID-19 (Pre-06/24) Moderna Vaccine, mRNA, PF 0 11/22/2020 Pneumococcal polysaccharide PPSV23 03/05/2007, Td (adult) 5 Lf Tetanus Toxoid, PF, Adsorbed Tdap 04/07/2025,11/20/2017 04/07/2035 Social History Tobacco Use Types Packs/Day Years Used Date Smoking Tobacco: Former Cigarettes 1 15 Smokeless Tobacco: Never Tobacco Cessation:Counseling Given: Not Answered Comments:Quit 09/02/2024 Alcohol Use Standard Drinks/Week Comments No 0 [...] Orientation Straight 09/29/2018 5: 18 PM EST Last Filed Vital Signs Vital Sign Reading Time Taken Comments Blood Pressure 99/70 04/07/2025 1:31 PM EDT Pulse 86 04/07/2025 1:31 PM EDT Temperature 36.8 C (98.2 F) 04/07/2025 1:31 PM EDT Respiratory Rate 16 04/07/2025 1:31 PM EDT Oxygen Saturation 96% 04/07/2025 1:31 PM EDT Inhaled Oxygen Concentration - - Weight 73.5 kg (162 lb) 05/05/2025 12:43 PM EDT Height 188 cm (6' 2 ) 05/05/2025 12:43 PM EDT Body Mass Index 20.8 05/05/2025 12:43 PM EDT Plan of Treatment Upcoming Encounters Date Type Department Care Team (Latest Contact Info) Description 05/14/2025 8:30 AM EDT Pre-Admission Testing Pre Procedure Evaluation [address] [place] [address] Susanna Burns MD [address] [place] [address] [email or web address] 05/17/2025 Procedure Pass OR Admitting Dept - Virtual Department [address] [place] [address] 05/17/2025 8:56 AM EDT Hospital Encounter OR Admitting Dept - Virtual Department [address] [place] [address] Susanna Burns MD [address] [place] [address] [email or web address] 05/17/2025 8:56 AM EDT - 05/17/2025 11:06 AM EDT Surgery OR Admitting Dept - Virtual Department [address] [place] [address] Susanna Burns MD [address] [place] [address] [email or web address] REPAIR HERNIA INGUINAL Scheduled Procedures Name Priority Associated Diagnoses Date/Ti me REPAIR HERNIA INGUINAL Unilateral inguinal hernia without obstruction or gangrene, recurrence not specified 05/17/2025 8:56 AM EDT Health Maintenance Due Date Last Done Comments DEPRESSION SCREENING 1974 SMOKING Hx and SMOKELESS TOBACCO SCREENING 1975 HIV ONE-TIME SCREENING (18-65 YEARS) 1980 COLOGUARD 2007 COLONOSCOPY 2007 COLORECTAL CANCER SCREENING 2007 FIT TEST 2007 FOBT 2007 SIGMOIDOSCOPY 2007 VIRTUAL COLONOSCOPY 2007 DIABETIC EYE EXAM 02/06/2022 PNEUMOCOCCAL VACCINES (50+ years) (2 of 2 - PCV) 02/15/2022 02/15/2021, 03/05/2007, 03/05/2007 URINE MICROALBUMIN/CREATININE RATIO 02/03/2023 02/03/2022 CREATININE LEVEL 02/10/2023 02/10/2022, 04/2022, 02/02/2022, Additional history exists POTASSIUM LEVEL 02/10/2023 02/10/2022, 06/0 04/2022, 02/02/2022, Additional history exists HEMOGLOBIN A1C 09/29/2024 06/29/2024, 08/0 10/2023, 11/12/2023, Additional history exists INFLUENZA VACCINE (#1) 2025 07/19/2023 BLOOD PRESSURE 10/08/2025 04/07/2025 Adult Td,Tdap Booster 04/07/2035 04/07/2025 , 11/20/2017, 08/21/2007 HEPATITIS C SCREENING Completed 09/26/2017 ZOSTER VACCINES Completed 06/03/2024, 03/04/2024 COVID-19 VACCINE Completed 06/17/2024, , 12/20/2020, Additional history exists RSV VACCINE Completed 07/22/2024 HEPATITIS A VACCINES Aged Out No long er eligible based on patient's age to complete this topic HIB VACCINES Aged Out No longer eligi ble based on patient's age to complete this topic MENINGOCOCCAL VACCINES (ACWY) Aged Out No longer eligible based on patient's age to complete this topic MENINGOCOCCAL VACCINES (B) Aged Out N o longer eligible based on patient's age to complete this topic Medical Devices Not on file Procedures Procedure Name Priority Date/Time Associated Diagnosis Comments BASIC METABOLIC PANEL Routine 02/10/2022 8:06 AM EDT HEMOGLOBIN A1C Routine 02/07/2022 6:15 AM EDT from Last 3 Months or Most Recently Relevant to Health Maintenance Results * (ABNORMAL) Basic metabolic panel (02/10/2022 8:06 AM EDT) SODIUM 141 133 - 146 mmol/L [facility] CHLORIDE 102 96 - 108 mmol/L [facility] POTASSIUM 4.0 3.3 - 5.1 mmol/L [facility] CO2 30 21 - 35 mmol/L [facility] BUN 42(H) 6 - 19 mg/dL [facility] CREATININE 1.80(H) 0.5 - 1.5 mg/dL [facility] GLUCOSE 131(H) 70 - 99 mg/dL [facility] CALCIUM 9.5 8.4 - 10.3 mg/dL [facility] EGFR 43(L) >59 mL/min/1.7 3m2 [facility] Comment:Estimated glomerular filtration rate calculated using the CKD-EPI refit equation. ANION GAP 13 10 - 20 mmol/L [facility] Blood 02/10/2022 8:06 AM EDT 02/10/2022 8:26 AM EDT Fernando Valentino MD LAB BLOOD ORDERABLES Final Result Performing Organization Address [facility]/ZIP Co de Phone Number [address] [address] * (ABNORMAL) Hemoglobin A1c (02/07/2022 6:15 AM EDT) HEMOGLOBIN A1C 9.3(H) 4.3 - 5.8 % [facility] Blood 02/07/2022 6:15 AM EDT 02/07/2022 6:32 AM EDT Katrin Herrera MD LAB BLOOD ORDERABLES Final Re sult Performing Organization Address City/[facility] Co de Phone Number [address] [address] from Last 3 Months or Most Recently Relevant to Health Maintenance Insurance [facility] Advance Directives For more information, please contact: [phone] (9AM - 5PM [facility], Saturday-Saturday) * Full Code (Latest Code Status on File) Date Activated Date Inactivated Comments 02/05/2022 6:55 PM Question Answer Comments Code Status Confirmed With: Patient Care Teams Emergency Detail Driver Relationship Specialty Start Date End Date Siddharth Ashley MD [address] [place] [address] [place] [phone] [email or web address] PCP - General Internal Medicine 10/28/24 Additional Source Comments The information contained in this document represents components of the legal health record. It is not the complete legal health record.[facility]
--- OUTSIDE RECORDS SUMMARY | 2025-05-11 12:32 | XMS_ITS | Encounter Summary ---
Author Organization [facility] Address [address] [place] [address] Phone Care Team Providers Care Teacher Specialist Name Role Phone Cindy Massey NP Primary Care Pro vider Cindy Hager RN Unavailable Siddharth Ashley MD Primary Care Provider [phone]- [phone] Encounter Details Date Type Department Care Team (Late st Contact Info) Description 02/07/2022 Procedure Pass [facility] [address] [place] [address] Social History Tobacco Use Types Packs/Day Years Used Date Smoking Tobacco: Every Day Cigarettes 1 15 Smokeless Tobacco: Never Alcohol Use Standard Drinks/Week Comments No 0 (1 standard drink = 0.6 oz pur e alcohol) Sex and Gender Information Value Date Recorded [...] AM EDT Pre-Admission Testing Pre Procedure Evaluation [address] [place] [address] Susanna Burns MD [address] 2nd [place] [address] [email or web address] 05/17/2025 Procedure Pass OR Admitting Dept - Virtual Department [address] [place] [phone] 05/17/2025 8:56 AM EDT Hospital Encounter OR Admitting Dept - Virtual Department [address] [place] [address] Susanna Burns MD [address] [place] [address] [email or web address] 05/17/2025 8:56 AM EDT - 05/17/2025 11:06 AM EDT Surgery OR Admitting Dept - Virtual Department [address] [place] [address] Susanna Burns MD [address] [place] [address] [email or web address] REPAIR HERNIA INGUINAL Scheduled Procedures Name Priority Associated Diagnoses Date/Ti dc REPAIR HERNIA INGUINAL Unilateral inguinal hernia without obstruction or gangrene, recurrence not specified 05/17/2025 8:56 AM EDT documented as of this encounter Visit Diagnoses Not on filedocumented in this encounter Care Teams Teacher Specialist Relationship Specialty Start Date End Date Cindy Massey NP [address] [place] [address] [email or web address] PCP - General Family Medicine 09/15/21 Siddharth Hardy MD [address] [place] [phone] [email or web address] PCP - General Internal Medicine 10/28/24 Cindy Hager, ARNULFO [address] [place] [address] [email or web address] Test Evaluator 04/29/24 05/10/24 documented as of this encounter Additional Source Comments The information contained in this document represents components of the legal health record. It is not the complete legal health record.[facility]
--- OUTSIDE RECORDS SUMMARY | 2025-05-11 12:33 | XMS_ITS | Encounter Summary ---
Author Organization [facility] Address [address] [place] [address] Phone Care Team Providers Care Customer Support Specialist Name Role Phone John Coronado MD Unavailable [email or web address] John Coronado MD Primary Care Provider [email or web address] Cindy Massey NP Primary Care Pro vider Jacquelyn Canales DO Unavailable [phone] Cindy Hager RN Unavailable Siddharth Ashley MD Primary Care Provider [phone]- [phone] Encounter Details Date Type Department Care Team (Late st Contact Info) Description 09/30/2018 Ancillary Orders Virtual Department [address] [place] [address] Kendrick Acosta PA-C [address] [place] [address] [email or web address] Foot swelling Social History Tobacco Use Types Packs/Day Years Used Date Smoking Tobacco: Every Day Smokeless Tobacco: Never Alcohol Use Standard Drinks/Week [...] AM EDT Pre-Admission Testing Pre Procedure Evaluation [address] [place] [address] Susanna Burns MD [address] [place] [address] [email or web address] 05/17/2025 Procedure Pass OR Admitting Dept - Virtual Department [address] [place] [phone] 05/17/2025 8:56 AM EDT Hospital Encounter OR Admitting Dept - Virtual Department [address] [place] [address] Susanna Burns MD [address] [place] [address] [email or web address] 05/17/2025 8:56 AM EDT - 05/17/2025 11:06 AM EDT Surgery OR Admitting Dept - Virtual Department [address] [place] [address] Susanna Burns MD [address] [place] [address] [email or web address] REPAIR HERNIA INGUINAL Scheduled Procedures Name Priority Associated Diagnoses Date/Ti oh REPAIR HERNIA INGUINAL Unilateral inguinal hernia without obstruction or gangrene, recurrence not specified 05/17/2025 8:56 AM EDT documented as of this encounter Results * US Lower Extremity Veins Duplex (Left) (09/30/2018 11:21 AM EST) Anatomical Region Laterality Modality Hip Left, Thigh Left, Knee L eft, Leg Left, Ankle Left, Foot Left Ultrasound 09/30/2018 11:4 8 AM EST Impressions 09/30/2018 11:49 AM EST Normal ultrasound evaluation of the deep venous system of the left leg. No findings of DVT are seen. Left popliteal fossa fluid collection consistent with a Posadas's cyst. S/S: Left foot swelling, Posadas's cyst POS [id number] Narrative 09/30/2018 11:49 AM EST The deep venous system of the left leg is well-visualized with domínguez scale imaging, color-flow imaging, and Doppler spectral analysis. No findings of deep venous thrombophlebitis are identified. There is complete compression of the deep venous system evident. Normal color flow is seen. There is excellent augmentation on the left. Evaluation of the popliteal fossa discloses a fluid collection measuring 4.8 x 1.3 x 1.9 cm consistent with a Posadas's cyst.. Procedure Note Benny Pierre MD - 09/30/2018 The deep venous system of the left leg is well-visualized with domínguez scaleimaging, color-flow imaging, and Doppler spectral analysis. No findingsof deep venous thrombophlebitis are identified. There is completecompression of the deep venous system evident. Normal color flow is seen.There is excellent augmentation on the left. Evaluation of the poplitealfossa discloses a fluid collection measuring 4.8 x 1.3 x 1.9 cm consistentwith a Posadas's cyst.. IMPRESSION: Normal ultrasound evaluation of the deep venous system of the left leg.No findings of DVT are seen. Left popliteal fossa fluid collectionconsistent with a Posadas's cyst. S/S: Left foot swelling, Posadas's cyst POS [id number] Kendrick Acosta PA-C US VASCULAR Final Result documented in this encounter Visit Diagnoses Diagnosis Foot swelling Swelling of limb Foot swelling Swelling of limb Unilateral inguinal hernia without obstruction or gangrene, recurrence not specified documented in this encounter Care Teams Customer Support Specialist Relationship Specialty Start Date End Date John Coronado MD [email or web address] PCP - General Family Medicine 05/08/18 09/14/21 Cindy Massey NP [address] [place] [address] [email or web address] PCP - General Family Medicine 09/15/21 10/27/24 Siddharth Ashley MD [address] [place] [address] [place] [phone] [email or web address] PCP - General Internal Medicine 10/28/24 John Coronado MD [email or web address] Insurance Assigned Provider 01/04/18 10/08/21 Jacquelyn Canales DO [address] [place] [address] [place] [address] Insurance Assigned Provider 10/08/21 11/05/21 Cindy Hager, ARNULFO [address] [place] [address] [email or web address] Circuit Board Repair Technician 04/29/24 05/10/24 documented as of this encounter Additional Source Comments The information contained in this document represents components of the legal health record. It is not the complete legal health record.[facility]
--- OUTSIDE RECORDS SUMMARY | 2025-05-11 12:33 | XMS_ITS | Encounter Summary ---
Author Organization [facility] Address [address] [place] [address] Phone Care Team Providers Care Multiple Coil Winder Name Role Phone Siddharth Ashley MD Primary Care Provider [phone] Encounter Details Date Type Department Care Team (Late st Contact Info) Description 12/02/2024 Procedure Pass [facility], [facility] [address] [place] [address] Social History Tobacco Use Types Packs/Day Years [...] 12:29 PM EDT Sexual Orientation Straight 09/29/2018 5 :18 PM EST documented as of this encounter Plan of Treatment Upcoming Encounters Date Type Department Care Team (Latest Contact Info) Description 05/14/2025 8:30 AM EDT Pre-Admission Testing Pre Procedure Evaluation [address] [place] [address] Susanna Burns MD [address] [place] [phone] [email or web address] 05/17/2025 Procedure Pass [place] Admitting Dept - Virtual Department [address] [place] [address] 05/17/2025 8:56 AM EDT Hospital Encounter OR Admitting Dept - Virtual Department [address] [place] [address] Susanna Burns MD [address] [place] [address] [email or web address] 05/17/2025 8:56 AM EDT - 05/17/2025 11:06 AM EDT Surgery OR Admitting Dept - Virtual Department [address] [place] [address] Susanna Burns MD [address] [place] [address] [email or web address] REPAIR HERNIA INGUINAL Scheduled Procedures Name Priority Associated Diagnoses Date/Ti me REPAIR HERNIA INGUINAL Unilateral inguinal hernia without obstruction or gangrene, recurrence not specified 05/17/2025 8:56 AM EDT documented as of this encounter Visit Diagnoses Not on filedocumented in this encounter Care Teams Multiple Coil Winder Relationship Specialty Start Date End Date Siddharth Ashley MD [address] [place] [address] [place] [phone] [email or web address] PCP - General Internal Medicine 10/28/24 documented as of this encounter Additional Source Comments The information contained in this document represents components of the legal health record. It is not the complete legal health record.[facility]
--- OUTSIDE RECORDS SUMMARY | 2025-05-11 12:33 | XMS_ITS | Encounter Summary ---
Author Organization [facility] Address [address] [place] [address] Phone Care Team Providers Care Monitor Tech Name Role Phone John Coronado MD Unavailable [email or web address], Unknown Primary Care Provider John Thomas MD Primary Care Provider [email or web address] Cindy Massey NP Primary Care Pro vider Jacquelyn Canales DO Unavailable [phone] Cindy Hager RN Unavailable Siddharth Ashley MD Primary Care Provider [phone] Encounter Details Date Type Department Care Team (Late st Contact Info) Description 04/14/2018 Procedure Pass [address] [place] [address] Social History Tobacco Use Types Packs/Day Years [...] EDT Pre-Admission Testing Pre Procedure Evaluation [address] [facility] [address] Susanna Burns MD [address] [place] [address] [email or web address] 05/17/2025 Procedure Pass OR Admitting Dept - Virtual Department [address] [place] [address] 05/17/2025 8:56 AM EDT Hospital Encounter OR Admitting Dept - Virtual Department [address] [place] [address] Susanna Burns MD [address] [place] [address] [email or web address] 05/17/2025 8:56 AM EDT - 05/17/2025 11:06 AM EDT Surgery OR Admitting Dept - Virtual Department [address] [place] [address] Susanna Burns MD [address] [place] [phone] [email or web address] REPAIR HERNIA INGUINAL Scheduled Procedures Name Priority Associated Diagnoses Date/Ti me REPAIR HERNIA INGUINAL Unilateral inguinal hernia without obstruction or gangrene, recurrence not specified 05/17/2025 8:56 AM EDT documented as of this encounter Visit Diagnoses Not on filedocumented in this encounter Care Teams Monitor Tech Relationship Specialty Start Date End Date Unknown, Unknown, MD PCP - General 03/14/18 05/07/18 John Coronado MD [email or web address] PCP - General Family Medicine 05/08/18 09/14/21 Cindy Massey NP [address] [place] [address] [email or web address] PCP - General Family Medicine 09/15/21 10/27/24 Siddharth Ashley MD [address] [place] [address] [place] [address] [email or web address] PCP - General Internal Medicine 10/28/24 John Coronado MD [email or web address] Insurance Assigned Provider 01/04/18 10/08/21 Jacquelyn Canales DO [address] [place] [address] [place] [id number] Insurance Assigned Provider 10/08/21 11/05/21 Cindy Hager, RN [address] [place] [id number] [email or web address] 04/29/24 05/10/24 documented as of this encounter Additional Source Comments The information contained in this document represents components of the legal health record. It is not the complete legal health record.[facility]
--- OUTSIDE RECORDS SUMMARY | 2025-05-11 12:33 | XMS_ITS | Encounter Summary ---
Author Organization [facility] Address [address] [facility] [address] [place] [address] Phone Care Team Providers Care Bookkeeper Name Role Phone John Coronado MD Unavailable [email or web address], Unknown Primary Care Provider John Thomas MD Primary Care Provider [email or web address] Cindy Massey NP Primary Care Pro vider Jacquelyn Canales DO Unavailable [phone] Cindy Hager RN Unavailable Siddharth Ashley MD Primary Care Provider [phone] Encounter Details Date Type Department Care Team (Late st Contact Info) Description 04/14/2018 Ancillary Orders Virtual Department 30 [place] [address] Jacquelyn Canales, DO [address] [place] [address] [email or web address] Monoplegia of upper extremity, unspecified etiology, unspecified laterality Social History Tobacco Use Types Packs/Day Years [...] AM EDT Pre-Admission Testing Pre Procedure Evaluation [address] [place] [address] Susanna Burns MD [address] [place] [address] [email or web address] 05/17/2025 Procedure Pass OR Admitting Dept - Virtual Department [address] [place] [phone] 05/17/2025 8:56 AM EDT Hospital Encounter OR Admitting Dept - Virtual Department [address] [place] [address] Susanna Burns MD [address] [place] [phone] [email or web address] 05/17/2025 8:56 AM EDT - 05/17/2025 11:06 AM EDT Surgery OR Admitting Dept - Virtual Department [address] [place] [address] Susanna Burns MD [address] [place] [phone] [email or web address] REPAIR HERNIA INGUINAL Scheduled Procedures Name Priority Associated Diagnoses Date/Ti wv REPAIR HERNIA INGUINAL Unilateral inguinal hernia without obstruction or gangrene, recurrence not specified 05/17/2025 8:56 AM EDT documented as of this encounter Results * MRI BRAIN WITHOUT CONTRAST (05/23/2018 1:45 PM EDT) Anatomical Region Laterality Modality Head Magnetic Resonan ce 05/23/2018 1:57 PM EDT Impressions 05/23/2018 2:45 PM EDT 1. Moderate size wedge-shaped signal abnormality in the posterior right frontal and adjacent parietal lobe and smaller similar signal abnormality more anteriorly in the right frontal lobe. Findings are likely due to old trauma or chronic right MCA infarcts. A small more acute component of ischemia in the right frontal/parietal abnormality is difficult to exclude. 2. No other evidence of acute intracranial pathology or other explanation for the patient's signs and symptoms. POS - [id number] Narrative 05/23/2018 2:45 PM EDT HISTORY: Left arm weakness/paralysis for three months, dizziness, diplopia and memory loss, history of remote trauma. COMPARISON: There are no prior imaging and no prior reports for comparison. TECHNIQUE: Exam performed on a 1.5 Lindsey high-field MRI scanner. Axial T1, T2, T2*, T2 FLAIR and diffusion-weighted imaging with ADC map, sagittal T1 sequences were obtained. FINDINGS: Moderate size, somewhat wedge-shape, area of hyperintense T2/T2 FLAIR signal abnormality within the posterior right frontal lobe and adjacent parietal lobe. This involves white matter and cortex. There is corresponding hyperintense signal on diffusion-weighted imaging (DWI) and the ADC map, likely largely due to T2 shine through artifact. There may be an 8mm focus within the abnormality which is hyperintense on DWI and hypointense on the ADC map (series 4, image 22) CT. No mass effect. Evidence of associated ex-vacuo dilatation of the sulci. Smaller wedge-shaped area of T2/T2 FLAIR hyperintensity involving cortex and white matter located more anteriorly in the right frontal lobe. This is also hyperintense on DWI and the ADC map. No mass effect. No other evidence of acute infarcts. No evidence of intracranial hemorrhage or hematomas. Ventricles are normal in size and configuration. Basal cisterns are patent. Normal flow-voids at the base of the skull. The paranasal sinuses are essentially clear. Procedure Note Scott Villela MD - 05/23/2018 HISTORY: Left arm weakness/paralysis for three months, dizziness,diplopia and memory loss, history of remote trauma. COMPARISON: There are no prior imaging and no prior reports forcomparison. TECHNIQUE: Exam performed on a 1.5 Lindsey high-field MRI scanner. AxialT1, T2, T2*, T2 FLAIR and diffusion-weighted imaging with ADC map,sagittal T1 sequences were obtained. FINDINGS: Moderate size, somewhat wedge-shape, area of hyperintense T2/T2 FLAIRsignal abnormality within the posterior right frontal lobe and adjacentparietal lobe. This involves white matter and cortex. There iscorresponding hyperintense signal on diffusion-weighted imaging (DWI) andthe ADC map, likely largely due to T2 shine through artifact. There maybe an 8mm focus within the abnormality which is hyperintense on DWI andhypointense on the ADC map (series 4, image 22) CT. No mass effect.Evidence of associated ex-vacuo dilatation of the sulci. Smaller wedge-shaped area of T2/T2 FLAIR hyperintensity involving cortexand white matter located more anteriorly in the right frontal lobe. Thisis also hyperintense on DWI and the ADC map. No mass effect. No other evidence of acute infarcts. No evidence of intracranialhemorrhage or hematomas. Ventricles are normal in size and configuration. Basal cisterns arepatent. Normal flow-voids at the base of the skull. The paranasal sinuses are essentially clear. IMPRESSION: 1. Moderate size wedge-shaped signal abnormality in the posterior rightfrontal and adjacent parietal lobe and smaller similar signal abnormalitymore anteriorly in the right frontal lobe. Findings are likely due to oldtrauma or chronic right MCA infarcts. A small more acute component ofischemia in the right frontal/parietal abnormality is difficult toexclude. 2. No other evidence of acute intracranial pathology or other explanationfor the patient's signs and symptoms. POS - [id number] Jacquelyn Canales DO IM MR HEAD/NECK Final Result documented in this encounter Visit Diagnoses Diagnosis Monoplegia of upper extremity, unspecified etiology, unspecified laterality Monoplegia of upper extremity, unspecified etiology, unspecified laterality Unilateral inguinal hernia without obstruction or gangrene, recurrence not specified documented in this encounter Care Teams Bookkeeper Relationship Specialty Start Date End Date Unknown, Unknown, PCP - General 03/14/18 05/07/18 John Coronado MD [email or web address] PCP - General Family Medicine 05/08/18 09/14/21 Cindy Massey NP [address] [place] [address] [place] [address] [email or web address] PCP - General Family Medicine 09/15/21 10/27/24 Siddharth Ashley MD [address] [place] [address] [place] [phone] [email or web address] PCP - General Internal Medicine 10/28/24 John Coronado MD [email or web address] Insurance Assigned Provider 01/04/18 10/08/21 Jacquelyn Canales DO [address] [place] [address] [place] [address] Insurance Assigned Provider 10/08/21 11/05/21 Cindy Hager, RN [address] [place] [address] [email or web address] [facility] [employer] 04/29/24 05/10/24 documented as of this encounter Additional Source Comments The information contained in this document represents components of the legal health record. It is not the complete legal health record.[facility]
--- OUTSIDE RECORDS SUMMARY | 2025-05-11 12:33 | XMS_ITS | Encounter Summary ---
Author Organization [facility] Address [address] [address] [place] [address] Phone Care Team Providers Care Edge Polisher Name Role Phone Siddharth Ashley MD Primary Care Provider [phone] Reason for Referral * MRI/CAT Scan - Closed Specialty Diagnoses / Procedures Referred By Contac t Referred To Contact Radiology Diagnoses Recurrent inguinal hernia without obstruction or gangrene, unspecified laterality Procedures CT Pelvis Cindy Massey NP [address] [place] [address] Phone: tel: fax: [email or web address] Referral ID Status Reason Start Date Expiration Date Visits Re quested Visits Authorized [id number] Closed 12/02/2024 12/02/2025 1 1 Encounter Details Date Type Department Care Team (Latest Contact Info) Description 12/02/2024 Transcribe Orders Virtual Department [address] [place] [address] Cindy Massey NP [address] [place] [address] [email or web address] Recurrent inguinal hernia without obstruction or gangrene, unspecified laterality (Primary Dx) Social History Tobacco Use Types Packs/Day Years [...] AM EDT Pre-Admission Testing Pre Procedure Evaluation [address] [place] [address] Susanna Burns MD [address] [place] [address] [email or web address] 05/17/2025 Procedure Pass OR Admitting Dept - Virtual Department [address] [place] [address] 05/17/2025 8:56 AM EDT Hospital Encounter OR Admitting Dept - Virtual Department [address] [place] [address] Susanna Burns MD [address] [place] [phone] [email or web address] 05/17/2025 8:56 AM EDT - 05/17/2025 11:06 AM EDT Surgery OR Admitting Dept - Virtual Department [address] [place] [address] Susanna Burns MD [address] [place] [address] [email or web address] REPAIR HERNIA INGUINAL Scheduled Procedures Name Priority Associated Diagnoses Date/Ti wy REPAIR HERNIA INGUINAL Unilateral inguinal hernia without obstruction or gangrene, recurrence not specified 05/17/2025 8:56 AM EDT documented as of this encounter Results * CT PELVIS WITHOUT CONTRAST (12/16/2024 9:02 AM EDT) Anatomical Region Laterality Modality Pelvis Computed Tomogra phy 12/17/2024 9:15 AM EDT Impressions 12/17/2024 9:19 AM EDT 1. Large right inguinal hernia containing small and large bowel, without evidence for obstruction. 2. Colonic diverticulosis, without evidence for acute diverticulitis. 3. The appendix is not inflamed. Narrative 12/17/2024 9:[address] PELVIS (GI) WITHOUT CONTRAST Referring clinician's provided indication for this examination in Epic: Outside Radiology Order; RIGHT INGUINAL HERNIA TECHNIQUE: Multidetector-row CT of the pelvis was performed without intravenous contrast using tailored dose modulation techniques. Images were reconstructed in the axial, coronal, and sagittal planes. COMPARISON: None available ABSENCE OF INTRAVENOUS CONTRAST DECREASES SENSITIVITY FOR DETECTION OF FOCAL LESIONS AND VASCULAR PATHOLOGY. FINDINGS: Bowel: No distention or wall thickening. Colonic diverticulosis. No evidence for diverticulitis. Peritoneum/Retroperitoneum: No free intraperitoneal gas or fluid in the pelvis. Lymph Nodes: No enlarged pelvic lymph nodes. Pelvic Organs/Bladder: No mass. Vessels: Moderate calcific atherosclerosis in the visualized pelvic arteries. Bones/Soft Tissues: Large right inguinal hernia, containing the cecum, the normal appendix, portions of the ascending colon and multiple loops of small bowel, including the terminal ileum. No resultant bowel obstruction or fluid collection/inflammation. Procedure Note John Mendieta MD - 12/17/2024 CT PELVIS (GI) WITHOUT CONTRAST Referring clinician's provided indication for this examination in [facility]:Outside Radiology Order; RIGHT INGUINAL HERNIA TECHNIQUE: Multidetector-row CT of the pelvis was performed withoutintravenous contrast using tailored dose modulation techniques. Imageswere reconstructed in the axial, coronal, and sagittal planes. COMPARISON: None available ABSENCE OF INTRAVENOUS CONTRAST DECREASES SENSITIVITY FOR DETECTION OFFOCAL LESIONS AND VASCULAR PATHOLOGY. FINDINGS: Bowel: No distention or wall thickening. Colonic diverticulosis. Noevidence for diverticulitis. Peritoneum/Retroperitoneum: No free intraperitoneal gas or fluid in thepelvis. Lymph Nodes: No enlarged pelvic lymph nodes. Pelvic Organs/Bladder: No mass. Vessels: Moderate calcific atherosclerosis in the visualized pelvicarteries. Bones/Soft Tissues: Large right inguinal hernia, containing the cecum, thenormal appendix, portions of the ascending colon and multiple loops ofsmall bowel, including the terminal ileum. No resultant bowel obstructionor fluid collection/inflammation. IMPRESSION: 1. Large right inguinal hernia containing small and large bowel, withoutevidence for obstruction. 2. Colonic diverticulosis, without evidence for acute diverticulitis. 3. The appendix is not inflamed. Cindy Massey CAPPER MACHINE OPERATOR IMG CT XSPECIALTY ORDERABLES Final Result documented in this encounter Visit Diagnoses Diagnosis Recurrent inguinal hernia without obstruction or gangrene, unspecified laterality- Primary Recurrent inguinal hernia without obstruction or gangrene, unspecified laterality Unilateral inguinal hernia without obstruction or gangrene, recurrence not specified documented in this encounter Care Teams Edge Polisher Relationship Specialty Start Date End Date Siddharth Ashley MD [address] [place] [address] [email or web address] PCP - General Internal Medicine 10/28/24 documented as of this encounter Additional Source Comments The information contained in this document represents components of the legal health record. It is not the complete legal health record.[facility]
== END 2025-05-11 10:53 | disposition home or self-care (01) ==
LOC: HO.HKA 10:37
PROVIDERS: Visit Provider Internal Medicine Hypertension Specialist
DX: I10 Essential (primary) hypertension (principal); E11.9 Type 2 diabetes mellitus without complications; N18.30 Chronic kidney disease, stage 3 unspecified
CPT/HCPCS: 99214

== ENCOUNTER → 2025-05-11 10:37 | Outpatient (BNVA) | payer MEDICAID, SELFPAY | PROVIDERS: Visit Provider Internal Medicine Hypertension Specialist | DX: I10 Essential (primary) hypertension (principal); N18.30 Chronic kidney disease, stage 3 unspecified; Z79.4 Long term (current) use of insulin; Z87.891 Personal history of nicotine dependence; E11.22 Type 2 diabetes mellitus with diabetic chronic kidney disease | CPT/HCPCS: 99212 ==

== ENCOUNTER 2025-08-10 11:32 | Outpatient (AMB) | payer MEDICAID, SELFPAY ==
[2025-08-10 11:40] VITALS: BP 110/80; PULSE 78; O2SAT 95; BMI 26.3
--- NOTE | 2025-08-10 11:40 | HO.NEPHOV_ITS ---
Vital Signs 08/10/25 11:40 Height 6 ft 2 in Weight 205 lb BMI 26.3 BP 110/80 Blood Pressure Location Rt brachial Position Sitting Pulse 78 Pulse Source Pulse Oximeter Pulse Oximetry (%) 95 Oxygen Delivery Method Room Air Intake Visit Reasons: 3mon f/u w/labs Changeover Operator Required: No Accompanied by: Family/Other Allergies codeine Allergy (Verified 08/10/25 11:42) Gastrointestinal Upset Medication List - Last Reconciled 08/10/25 by Keith Bernardo MD aspirin 81 mg PO DAILY atorvastatin 20 mg PO DAILY carvedilol 25 mg PO BID clopidogrel 75 mg PO DAILY dulaglutide (Trulicity) mg subcut famotidine 40 mg PO BID glipizide ER 5 mg PO DAILY hydroxyzine HCl 25 mg PO DAILY insulin glargine (Lantus Solostar U-100 Insulin) units subcut risperidone 1 mg PO BEDTIME tamsulosin 0.4 mg PO DAILY HPI Comments Details: History of Present Illness The patient is a 65-year-old male presenting for follow-up of long-standing hypertension, diabetes mellitus, and chronic kidney disease. His medical history is significant for peripheral vascular disease, and he is status post a left carotid endarterectomy in September 2024. He has a history of significant smoking in the past but has since quit. Since his last visit, the patient underwent a right inguinal hernia repair on June 14, which he reports has healed well. He reports good blood sugar control, with a reading of 143 today, and good blood pressure control. He experiences occasional lightheadedness upon standing and notes urinary urgency, but denies difficulty breathing or other urination problems. Recent lab results from August 06 showed a BUN of 29, creatinine of 2.2, and a GFR of 32. Electrolytes were notable for an elevated potassium of 5.6 and calcium of 10.8. The patient denies taking any calcium or vitamin D supplements and has been actively avoiding high-potassium foods like yogurt, oranges, and bananas. A kidney ultrasound performed in May 2024 was reportedly normal. He reports a new cough that started a little while ago, which he attributes to his recent hernia operation. [facility] Surgical History (Updated 08/10/25 @ 11:42 by ANTONIETA Warner) History of hernia surgery (~06/2025) Social History Alcohol intake: former Patient Tobacco Use Status: Former Tobacco user Tobacco use type: Cigarette Substance Use Type: Marijuana Physical Exam Exam Exam: Physical Exam General: Awake. Comfortable. HENT: Neck supple. Mucosa moist. Pulmonary: Lungs aeration equal. No rales. Cough present. Cardiology: Heart S1-S2 heard. No gallop. Abdomen: Soft. Non tender. Bowel sounds normal. Neurologic: No involuntary movements. No myoclonus. Extremities: No edema. No rash. Vital Signs: Last Vital Signs Pulse 78 08/10/25 11:40 BP 110/80 08/10/25 11:40 Pulse Ox 95 08/10/25 11:40 Oxygen Delivery Method Room Air 08/10/25 11:40 BMI result Body Mass Index 26.3 Results Reviewed Results Reviewed: May 2024 RIGHT KIDNEY: 9.6 x 5.3 x 5.4 cm (SAG x AP x TRV). The kidney is normal in size, contour, and echogenicity. Renal cortical thickness is normal. No calculi or focal parenchymal lesions. No hydronephrosis. LEFT KIDNEY: 12.1 x 5.7 x 4.8 cm (SAG x AP x TRV). The kidney is normal in size, contour, and echogenicity. Renal cortical thickness is normal. No calculi or focal parenchymal lesions. No hydronephrosis. 04/26/25 BUN /Cr 30/2.3 Nephrology Results: Hgb, (14.0-18.0) 15.0 g/dl 10/06/24 WBC, (4.8-10.8) 12.3 X10*3/uL H 10/06/24 Plt Count, (160-400) 258 X10*3/uL 10/06/24 Sodium, (135-145) 140 mmol/L 10/06/24 Potassium, (3.3-5.1) 4.6 mmol/L 10/06/24 Chloride, (96-108) 105 mmol/L 10/06/24 Carbon Dioxide, (22-29) 24 mmol/L 10/06/24 BUN, (9-16) 25 mg/dL H 10/06/24 Creatinine, (0.5-1.4) 2.01 mg/dL H 10/06/24 Calcium, (8.4-10.2) 9.7 mg/dL 10/06/24 Renal US 05/29/24 Assessment & Plan Assessment & Plan (1) HTN (hypertension): Code(s): I10 - Essential (primary) hypertension Category: Medical (2) Diabetes mellitus: Code(s): E11.9 - Type 2 diabetes mellitus without complications Category: Medical (3) CKD (chronic kidney disease) stage 3, GFR 30-59 ml/min: Code(s): N18.30 - Chronic kidney disease, stage 3 unspecified Category: Medical Plan Plan 1. Chronic Kidney Disease - The patient's GFR is 32, and kidney function is noted to be slightly improved from the prior visit. - Medications like lisinopril will be held due to concurrent hyperkalemia, as they can further elevate potassium levels. - The patient was advised to maintain adequate fluid intake. - Follow-up in 3 months is recommended. 2. Hyperkalemia - The patient's potassium level is elevated at 5.6, which is higher than the desired range. - The etiology is likely multifactorial, stemming from dietary intake and reduced renal excretion. - The patient was counseled to continue avoiding high-potassium foods such as oranges, bananas, and nuts. - He was also advised to avoid salt substitutes, as they contain high levels of potassium. - An order will be placed for repeat electrolytes in 2 months to monitor the potassium level. - If the hyperkalemia persists or worsens, a medication to lower potassium will be considered. 3. Hypercalcemia - The patient's calcium level is elevated at 10.8. - He denies taking calcium or vitamin D supplements. - To investigate the cause of the hypercalcemia, a parathyroid hormone (PTH) level will be checked along with repeat electrolytes in 2 months. Orders: Orders Total Protein Urine Random 2 Months N18.30 - Chronic kidney disease, stage 3 unspecified Creatinine Urine 2 Months N18.30 - Chronic kidney disease, stage 3 unspecified Protein Electrophoresis, Serum 2 Months N18.30 - Chronic kidney disease, stage 3 unspecified Basic Metabolic Panel 2 Months N18.30 - Chronic kidney disease, stage 3 unspecified Parathyroid Hormone Intact 2 Months N18.30 - Chronic kidney disease, stage 3 unspecified UA and rflx microscopic 2 Months N18.30 - Chronic kidney disease, stage 3 unspecified Coding Level of Care Code Est Pt Level 4 (21776) Diagnoses HTN (hypertension) I10 Diabetes mellitus E11.9 CKD (chronic kidney disease) stage 3, GFR 30-59 ml/min N18.30
== END 2025-08-10 11:55 | disposition home or self-care (01) ==
LOC: HO.HKA 11:33
PROVIDERS: Visit Provider Internal Medicine Hypertension Specialist
DX: I10 Essential (primary) hypertension (principal); E11.9 Type 2 diabetes mellitus without complications; N18.30 Chronic kidney disease, stage 3 unspecified
CPT/HCPCS: 99214

== ENCOUNTER → 2025-08-10 11:32 | Outpatient (BNVA) | payer MEDICAID, SELFPAY | PROVIDERS: Visit Provider Internal Medicine Hypertension Specialist | DX: I12.9 Hypertensive chronic kidney disease with stage 1 through stage 4 chronic kidney disease, or unspecified chronic kidney disease (principal); N18.30 Chronic kidney disease, stage 3 unspecified; E11.22 Type 2 diabetes mellitus with diabetic chronic kidney disease; E87.5 Hyperkalemia; E83.52 Hypercalcemia; Z87.891 Personal history of nicotine dependence | CPT/HCPCS: 99212 ==